=== PATIENT | male | born 1975 ===

== ENCOUNTER 2016-08-10 08:15 | Emergency (ER) | payer SELFPAY ==
[2016-08-10 08:17] VITALS: BMI 22.6
[2016-08-10 08:18] VITALS: BP 136/87; PULSE 79; RESP 18; TEMP 98.3; O2SAT 100
== END 2016-08-10 08:35 | disposition left against medical advice (07) ==
LOC: C.ER 08:15
DX: Z76.0 Encounter for issue of repeat prescription (principal); Z02.9 Encounter for administrative examinations, unspecified

== ENCOUNTER 2017-04-29 16:41 | Inpatient (IN) | payer MEDICAID ==
[2017-04-29 16:42] VITALS: BMI 22.6
--- NOTE | 2017-04-29 18:30 | C.PDOC ---
History Of Present Illness Shady Rowley is a 41 year old male, with no past medical history, who presents to the emergency department requesting detox of heroin, last time used was last night. Patient is complaining of nausea, crampy abdominal pain, and mild diarrhea. Patient states he shoots heroin. He denies any headache or other medical complaints. PMD: None provided. Time Seen by Provider: 04/29/17 18:00 Chief Complaint (Nursing): Substance Abuse History Per: Patient History/Exam Limitations: no limitations Onset/Duration Of Symptoms: Days (x1) Current Symptoms Are (Timing): Still Present Suicide/Self Injury Attempted (Context): None Pain Scale Rating Of: 0 Past Medical History Reviewed: Historical Data, Nursing Documentation, Vital Signs Vital Signs: Last Vital Signs Temp 98.2 F 04/29/17 17:13 Pulse 93 H 04/29/17 17:13 Resp 20 04/29/17 17:13 BP 103/65 04/29/17 17:13 Pulse Ox 95 04/29/17 18:37 Surgical History: No Surg Hx Family History: States: Unknown Family Hx - Social History Hx Alcohol Use: Yes Hx Substance Use: Yes - Immunization History Hx Tetanus Toxoid Vaccination: No Hx Influenza Vaccination: No Hx Pneumococcal Vaccination: No Review Of Systems Except As Marked, All Systems Reviewed And Found Negative. Gastrointestinal: Positive for: Nausea, Abdominal Pain (cramp), Diarrhea (mild) Neurological: Negative for: Headache Physical Exam - Physical Exam Appears: Other (restless) Skin: Normal Color, Warm, Dry Head: Atraumatic, Normacephalic Neck: Normal, Normal ROM, Supple Cardiovascular: Rhythm Regular Respiratory: Normal Breath Sounds, No Accessory Muscle Use Gastrointestinal/Abdominal: Normal Exam, Soft, No Tenderness, No Guarding, No Rebound Extremity: Normal ROM, No Deformity, No Swelling Neurological/Psych: Oriented x3, Normal Speech ED Course And Treatment O2 Sat by Pulse Oximetry: 95 (RA) Pulse Ox Interpretation: Normal Medical Decision Making Medical Decision Making: Initial Impression: substance abuse Initial Plan: --Alcohol serum --Comp Metabolic Panel --Drug screen, urine --CBC w/ differential --AES Crisis evaluation --Urinalysis --reevaluation Disposition - Disposition Disposition Time: 18:37 Condition: STABLE - Clinical Impression Clinical Impression: Drug abuse Physician Patient Turnover Patient Signed Over To: Dane Cadena DO Handoff Comments: pre-screen, pending labs, med clearance
[2017-04-29 18:36] LABS: RBC URINE 1 /hpf (0-3); URINE BILIRUBIN NEGATIVE (NEGATIVE); URINE BLOOD NEGATIVE (NEGATIVE); URINE COLOR Yellow (YELLOW); URINE GLUCOSE (UA) NORMAL (Normal); URINE KETONE NEGATIVE (NEGATIVE); URINE LEUKOCYTE ESTERASE NEG Leu/uL (Negative); URINE PROTEIN NEGATIVE (NEGATIVE); URINE UROBILINOGEN NORMAL mg/dL (0.2-1.0); WBC URINE 1 /hpf (0-5)
[2017-04-29 18:48] LABS: BASO % 0.5 % (0.0-2.0); EOS % 0.5 % (0.0-4.0); HEMATOCRIT 40.6 % (35.0-51.0); LYMPH # 1.3 K/uL (1.0-4.3); LYMPH % 32.3 % (20.0-40.0); MEAN CELL VOLUME 86.3 fL (80.0-94.0); MEAN CORPUSCULAR HEMOGLOBIN 28.2 pg (27.0-31.0); MEAN CORPUSCULAR HGB CONC 32.6 g/dL (33.0-37.0); MEAN PLATELET VOLUME 7.2 fL (7.2-11.7); MONO # 0.3 K/uL (0.0-0.8); MONO % 6.8 % (0.0-10.0); NRBC % 0.1 % (0.0-2.0); RED CELL DISTRIBUTION WIDTH 13.3 % (11.5-14.5); WHITE BLOOD COUNT 4.1 K/uL (4.8-10.8)
[2017-04-29 18:49] LABS: ALB/GLOB RATIO 1.5 (1.0-2.1); ALCOHOL SERUM < 10 mg/dl (0-10); ALKALINE PHOSPHATASE 79 U/L (38-126); ALT/SGPT 85 U/L (21-72); AST/SGOT 48 U/L (17-59); BILIRUBIN,TOTAL 0.7 mg/dL (0.2-1.3); BLOOD UREA NITROGEN 16 mg/dL (9-20); CALCIUM 8.7 mg/dl (8.6-10.4); CARBON DIOXIDE 33 mmol/L (22-30); CHLORIDE 100 mmol/L (98-107); GFR AFRICAN-AMERICAN > 60; GLUCOSE,RANDOM 98 mg/dL (75-110); POTASSIUM 4.4 mmol/L (3.6-5.2); SODIUM 141 mmol/L (132-148); TOTAL PROTEIN 7.6 g/dL (6.3-8.3)
--- NOTE | 2017-04-29 19:41 | PCM.BM ---
<Lili Garcia - Last Filed: 04/29/17 19:40> Treatment Plan Problems - Problems identified on initial assessmt Potential for opiate withdrawal Date Initiated: 04/29/17 Time Initiated: 19:40 Assessment reference: NA Status: Active Priority: 1 Treatment assets and liabiliti Patient Assests: physically healthy, negotiates basic needs, cognitively intact Patient Liabilities: substance abuse - Milieu Protocol Maintain good personal hygiene: daily Encourage regular showers, daily Remind patient to perform daily oral care, daily Assist patient to perform ADL's Conduct patient checks and document Observation sheet: Q15 minutes Maintain personal safety: every shift Educate patient to report safety concerns to staff, every shift Monitor environment for contraband/sharps Medication safety: Monitor for expected outcome, potential side effects: every shift, Assess barriers to learning: every shift, Assess readiness for medication education: every shift <Camille Villarreal - Last Filed: 05/02/17 14:56> Family Contact Family involvement: Famliy/SO not involved Family contact: Patient agrees to contact - Goals for Treatment Patient goals for treatment: Complete detox and apply for the [employer] Discharge/Continuing Care - Education Needs Education Needs: Patient Medication, Patient Diagnosis/Disease Process, Patient Coping Skills, Patient Anger Management skills, Patient Placement options, Patient Community resources - Discharge Discharge Criteria: No longer exhibiting s/s of withdrawal, Reduction of target symptoms Discharge to:: Substance Abuse Rehab - Treatment Team Participation Patient/Family/SO Statement: 05/02/17 14:58 "I wanna go to the [facility]". Discussed with Family/SO: No Was Patient/Family/SO present at Treatment Team Meeting: Yes <Huy Cazares - Last Filed: 05/04/17 18:01> - Diagnosis (1) Opioid use disorder, severe, dependence Status: Acute Interventions: 05/04/17 18:01 * Assess 7x/week regarding severity of withdrawal * Educate regarding risks, benefits, side effects and alternatives of medications * Use Motivational Interviewing for abstinence * Use CBT for relapse prevention * Medication management for withdrawal symptoms * Encourage medication assisted treatment *
--- NOTE | 2017-04-30 10:17 | PCM.PSYCH ---
Initial Psychiatric Evaluation - Initial Psychiatric Evaluation Type of Admission: Voluntary Legal Status: Capacity Chief Complaint (in patient's own words): "I want to get off heroin" History of Present Illness and Precipitating Events: This patient was seen, chart reviewed, and case discussed with staff. Patient is a 41 year old male who is homeless and is temporarily staying with his mother. He does "odd jobs" for work, including labor, construction, and painting. Patient reports IV heroin use, average 11 bags daily, max 1 bundle, last used 1 day prior to admission (2 days ago). He reports cocaine use, average 0.5 grams. He states his longest sobriety was 3 years, from [id number]. He reports being [place] [facility] [place] and states his relapse was due to boredom and depression. He reports withdrawal symptoms including nausea, cramps, joint pains, anxiety, sweating and headaches. He reports feelings of depression, anxiety, but denies any feelings of hopelessness, and helplessness. He denies any suicidal or homicidal ideations. He denies any AVH. Patient denies any inpatient psychiatric admissions or outpatient follow up care. Past medical history: denies Past psychiatric history: denies Family psychiatric history: unknown by patient Family substance use: unknown by patient Current Medications: Active Medications Generic Name Dose Route Start Last Admin Trade Name Freq PRN Reason Stop Dose Admin Clonidine HCl 0.1 mg 04/29/17 19:42 Catapres PO Q8 PRN opiate withdrawal Hydroxyzine HCl 25 mg 04/29/17 19:39 04/29/17 21:09 Atarax PO 25 mg Q6 PRN Administration Anxiety Trazodone HCl 50 mg 04/29/17 19:38 04/29/17 21:09 Desyrel PO 50 mg HS PRN Administration Insomnia Past Psychiatric History - Past Psychiatric History Previous Treatment History: Inpatient Pertinent Medical Hx (Current Medical&Sleep Prob, Allergies): Allergies Allergy/AdvReac Type Severity Reaction Status Date / Time No Known Allergies Allergy Verified 08/10/16 08:17 No Known Home Med 04/29/17 Review of Systems - Review of Systems All systems: reviewed and no additional remarkable complaints except - Neurological Neurological: absent: Convulsions, Tremor - Psychiatric Psychiatric: Abnormal Sleep Pattern, Anxiety, Depression, Irritability. absent : Auditory Hallucinations, Homicidal Ideation, Suicidal Ideation, Visual Hallucinations Mental Status Examination - Personal Presentation Personal Presentation: Looks stated age - Affect Affect: Constricted - Motor Activity Motor Activity: Calm - Reliability in Providing Information Reliability in Providing Information: Fair - Speech Speech: Organized - Mood Mood: Depressed, Anxious - Formal Thought Process Formal Thought Process: No Impairment - Obsessions/Compulsions Obsessions: No Compulsions: No - Cognitive Functions Orientation: Person, Place, Situation, Time Sensorium: Drowsy Attention/Concentration: Attentive Abstract Thinking: Esmond Estimate of Intelligence: Below average Judgement: Imparied, as evidence by: Poor judgement, Intact, as evidence by: Insight regarding need for hospitalization Memory: Recent intact, as evidence by: Ability to recall events of the day, Remote intact, as evidenced by: Abilit to recall sig. life events - Risk Risk: Withdrawal, Diminished functioning DSM 5 DX - DSM 5 DSM 5 Diagnosis: Opioid use disorder, severe Opioid withdrawal Cocaine use disorder Depressive disorder - Recommended/Plan of Treatment Treatment Recommendations and Plan of Treatment: Methadone detox Gabapentin for augmentation As needed medications Attend groups and activities Supportive therapy and psychoeducation [place] for abstinence CBT for relapse prevention Encourage MAT Refer to rehab or IOP, and self-help groups. Projected ELOS: 4-5 days Prognosis: Good with treatment Discharge Plan and Discharge Criteria: No withdrawal symptoms Refer to rehab - Smoking Cessation Smoking Cessation Initiated: No
[2017-05-02] MEDS ORDERED: Magnesium Hydroxide Susp 30 ml UD PO ONE (13:32)
--- NOTE | 2017-05-02 13:34 | PCM.PYCHPN ---
Psychiatric Progress Note - Psychiatric Progress Note Patient seen today, length of contact: 16 min Patient Chief Complaint: "Sleep is bad" Problems Identified/Issues Discussed: The pt is seen, chart reviewed, case discussed with staff. Support given, CBT and IL used briefly No new symptoms reported, improving slowly and needs more time No SEs from medications, risks discussed. After care discussed - [facility] Seroquel added Medication Change: Yes (detox changes daily) Medical Record Reviewed: Yes Mental Status Examination - Cognitive Function Orientation: Person, Place, Situation, Time Memory: Intact Attention: WNL Concentration: Poor Association: WNL Fund of Knowledge: WNL - Mood Mood: Depressed, Anxious - Affect Affect: Constricted - Speech Speech: Appropriate - Formal Thought Process Formal Thought Process: No Impairment - Suicidal Ideation Suicidal Ideation: No - Homicidal Ideation Homicidal Ideation: No Goal/Treatment Plan - Goal/Treatment Plan Need for Continued Stay: Discharge may exacerbated symptoms, Severe functional impairment Progress Toward Problem(s) and Goals/Treatment Plan: As needed medications Gabapentin for augmentation Attend groups and activities Supportive therapy and psychoeducation [place] for abstinence CBT for relapse prevention Encourage MAT Refer to rehab or IOP Attend self-help groups as well
--- NOTE | 2017-05-03 14:09 | PCM.PYCHPN ---
Psychiatric Progress Note - Psychiatric Progress Note Patient seen today, length of contact: 15 minutes Patient Chief Complaint: I am feeling much better. Problems Identified/Issues Discussed: Patient seen, chart reviewed, case discussed with the staff. Issues related to illness and treatment were discussed with the patient. Reported compliant with treatment with no adverse effects. Tolerating treatment very well. Reported feeling much better with the treatment. Next Aftercare discussed with the patient. Denied any delusions, auditory or visual hallucinations, suicidal ideations or homicidal ideations at the time of evaluation. Medical Problems: None reported Diagnostic Results: Reviewed DSM 5 Symptoms Update: Improving with treatment Medication Change: No Medical Record Reviewed: Yes Mental Status Examination - Cognitive Function Orientation: Person, Place, Situation, Time Memory: Intact Attention: WNL Concentration: WNL Association: [facility] Fund of Knowledge: [facility] Decription of patient's judgement and insights: Fair - Mood Mood: Anxious - Affect Affect: Other (Appropriate) - Speech Speech: Appropriate - Formal Thought Process Formal Thought Process: No Impairment Psychotic Thoughts and Behaviors: None - Suicidal Ideation Suicidal Ideation: No - Homicidal Ideation Homicidal Ideation: No Goal/Treatment Plan - Goal/Treatment Plan Need for Continued Stay: Remain at risks for inpatient hospitalization, Discharge may exacerbated symptoms, Severe functional impairment Progress Toward Problem(s) and Goals/Treatment Plan: Improving. Patient education. Supportive therapy Continue treatment as before. Patient will go to [facility] for follow-up care after discharge from the hospital. Estimated Date of D/C: 05/05/17 - Smoking Cessation Smoking Cessation Initiated: Yes
--- NOTE | 2017-05-04 15:01 | PCM.PYCHPN ---
Psychiatric Progress Note - Psychiatric Progress Note Patient seen today, length of contact: 15 minutes Patient Chief Complaint: "I'm feeling better" Problems Identified/Issues Discussed: The pt is seen, chart reviewed, case discussed with staff. The pt is compliant with medications and reports no side-effects. Symptoms are improving but needs more time to stabilize. After care discussed, support and psychoeducation given DSM 5 Symptoms Update: Opioid use d/o, severe, dependence, withdrawal symptoms, cocaine use disorder Medication Change: Yes (detox changes daily) Medical Record Reviewed: Yes Mental Status Examination - Cognitive Function Orientation: Person, Place, Situation, Time Memory: Intact Attention: WNL Concentration: Poor Association: WNL Fund of Knowledge: WNL - Mood Mood: Anxious - Affect Affect: Constricted - Speech Speech: Appropriate - Formal Thought Process Formal Thought Process: No Impairment Psychotic Thoughts and Behaviors: denied paranoid delusions. no AVH.TP: Linear - Suicidal Ideation Suicidal Ideation: No - Homicidal Ideation Homicidal Ideation: No Goal/Treatment Plan - Goal/Treatment Plan Need for Continued Stay: Discharge may exacerbated symptoms, Severe functional impairment Progress Toward Problem(s) and Goals/Treatment Plan: Continue Methadone taper As needed medications Gabapentin for augmentation Attend groups and activities Supportive therapy and psychoeducation [place] for abstinence CBT for relapse prevention Encourage MAT Refer to rehab or IOP Attend self-help groups as well Estimated Date of D/C: 05/05/17
[2017-05-04 16:12] VITALS: RESP 18
[2017-05-05 08:58] VITALS: BP 120/82; PULSE 78; TEMP 97.8; O2SAT 100
--- NOTE | 2017-05-05 13:32 | PCM.PYCHDC ---
Mental Status Examination - Mental Status Examination Orientation: Person, Place, Situation, Time Memory: Intact Mood: Anxious Affect: Constricted Speech: Appropriate Attention: WNL Concentration: WNL Association: WNL Fund of Knowledge: WNL Formal Thought Process: No Impairment Suicidal Ideation: No Current Homicidal Ideation?: No Discharge Summary - Discharge Note Reason for Hospitalization: Heroin detox Consultations:: List each consultation separately and include: 1. Reason for request. 2. Findings. 3. Follow-up Summary of Hospital Course include:: 1. Description of specific treatment plan utilized for patients during their course of treatmen. 2. Summarize the time- course for resolution of acute symptoms and/or regressed behaviors. 3. Describe issues identified and worked on during hospitalization. 4. Describe medication utilized. 5. Describe medical problems identified and treated. 6. Reassessment of suicide risk Summary of Hospital Course: The pt was admitted and started on treatment with psychotherapy, support, psychoeducation and medications. CA and CBT used. The pt attended groups and activities, as well as milieu therapy. All the risks and benefits of medications are discussed and the patient understood and agreed. The pt improved with the treatments provided. After care discussed with the patient. He went to [facility] in [place] - Final Diagnosis (DSM 5) Condition upon Discharge: IMPROVED DSM 5: Opioid use disorder, severe Opioid withdrawal Cocaine use disorder Depressive disorder Disposition: REHAB FACILITY/REHAB UNIT Follow-up Treatment Plan: Continue below medications after discharge. Follow after care plan as discussed. Use relapse prevention skills Return to ER or call 911 if suicidal, homicidal or symptoms relapse. Stay away from stress, alcohol and drugs. See primary doctor regularly and get labs. Prescriptions/Medication Reconciliation: QUEtiapine [Seroquel] 100 mg PO HS #30 tab - Smoking Cessation Smoking Cessation Medication prescribed: No - Antipsychotic Medications Pt discharged on 2 or more routine antipsychotic medications: No
== END 2017-05-05 09:45 | disposition home or self-care (01) | DRG 745 ==
LOC: C.ER 16:41 → C.7D 19:17
PROC: HZ2ZZZZ Detoxification Services for Substance Abuse Treatment (ICD-10-PCS; principal; 2017-04-29)
DX: F11.23 Opioid dependence with withdrawal (principal); F14.10 Cocaine abuse, uncomplicated; F32.9 Major depressive disorder, single episode, unspecified; F41.9 Anxiety disorder, unspecified; Z59.0 Homelessness

== ENCOUNTER 2017-07-28 17:32 | Emergency (ER) | payer MEDICAID, OTHER ==
[2017-07-28 17:32] VITALS: BMI 22.6
[2017-07-28 17:40] VITALS: BP 112/73; PULSE 70; RESP 18; TEMP 98.8; O2SAT 98
--- NOTE | 2017-07-28 18:21 | C.PDOC ---
History Of Present Illness 41 year old male presents to the ED c/o toothache for the past 2 weeks. Patient states he went to see a dentist who prescribed him amoxicillin but nothing for the pain. Patient denies fever, chills, nausea, vomit, diarrhea. Time Seen by Provider: 07/28/17 18:06 Chief Complaint (Nursing): Dental Pain History Per: Patient History/Exam Limitations: no limitations Onset/Duration Of Symptoms: Days Current Symptoms Are (Timing): Still Present Quality: Positive for: "Pain" Recent travel outside of the [place]: No Additional History Per: Patient Past Medical History Reviewed: Historical Data, Nursing Documentation, Vital Signs Vital Signs: Last Vital Signs Temp 98.8 F 07/28/17 17:40 Pulse 70 07/28/17 17:40 Resp 18 07/28/17 17:40 BP 112/73 07/28/17 17:40 Pulse Ox 98 07/28/17 18:25 - Medical History PMH: No Chronic Diseases Denies: Diabetes, Hepatitis, HIV, HTN, Seizures, Sexually Transmitted Disease Surgical History: No Surg Hx - [facility] FOR SUBSTANCE ABUSE TREATMENT (04/29/17) Family History: States: Unknown Family Hx - Social History Hx Alcohol Use: No Hx Substance Use: Yes (methadone, cocaine) - Immunization History Hx Tetanus Toxoid Vaccination: No Hx Influenza Vaccination: No Hx Pneumococcal Vaccination: No Review Of Systems Constitutional: Negative for: Fever, Chills ENT: Positive for: Mouth Pain Respiratory: Negative for: Cough, Shortness of Breath Gastrointestinal: Negative for: Nausea, Vomiting, Abdominal Pain Skin: Negative for: Rash Neurological: Negative for: Weakness, Numbness Physical Exam - Physical Exam Appears: Non-toxic, No Acute Distress Skin: Normal Color, Warm, Dry Head: Atraumatic, Normacephalic Eye(s): bilateral: Normal Inspection Ear(s): Bilateral: Normal Nose: No Discharge, No Deformity Oral Mucosa: Moist Tongue: No Swelling Lips: No Swelling, No Other (angina) Teeth: Other (tooth decay involving teeth 16 and 32, no trismus) Gingiva: Swelling (minimal) Throat: Normal, No Erythema, No Exudate Neck: Normal ROM, Supple Neurological/Psych: Oriented x3, Normal Speech, Normal Cognition Gait: Steady ED Course And Treatment O2 Sat by Pulse Oximetry: 98 (On RA) Pulse Ox Interpretation: Normal Medical Decision Making Medical Decision Making: Assessment: toothache Plan: * Motrin 600 mg PO * Tylenol/codein 1 ea PO Patient was advised to continue with his penicillin and take naproxen. Disposition Counseled Patient/Family Regarding: Studies Performed, Diagnosis, Need For Followup, Rx Given - Disposition Disposition: HOME/ ROUTINE Disposition Time: 18:23 Condition: STABLE Additional Instructions: follow up with your dentist in 2 days call to make an appointment take medications as prescribed return to ER if symptoms worsens or progress Prescriptions: Naproxen [Naprosyn] 500 mg PO BID PRN #16 tab PRN Reason: Pain, Moderate (4-7) Instructions: Tooth Decay, Adult Forms: [facility] ([place]), General Discharge Instructions - Clinical Impression Clinical Impression: Dental caries - Scribe Statement The provider has reviewed the documentation as recorded by the Scribe Andrea Rivera All medical record entries made by the Scribe were at my direction and personally dictated by me. I have reviewed the chart and agree that the record accurately reflects my personal performance of the history, physical exam, medical decision making, and the department course for this patient. I have also personally directed, reviewed, and agree with the discharge instructions and disposition.
[2017-07-28] MEDS ORDERED: Acetaminophen-Codeine 300/30 mg Tab PO STA (18:23)
[2017-07-28] MEDS ORDERED: Acetaminophen-Codeine 300/30 mg Tab PO ONE (18:28)
== END 2017-07-28 18:31 | disposition home or self-care (01) ==
LOC: C.ER 17:32
DX: K02.9 Dental caries, unspecified (principal)